=== PATIENT | male | born 2000 | race African-American/Black ===

== ENCOUNTER 2019-09-16 22:09 | Emergency (ER) | payer OTHER, SELFPAY ==
[2019-09-16 22:10] VITALS: BP 106/69; PULSE 74; RESP 18; TEMP 36.4; O2SAT 98; BMI 19.1
[2019-09-16 22:38] VITALS: BP 130/81; PULSE 77; RESP 15; O2SAT 99
[2019-09-16] MEDS: predniSONE 20 MG Tablet 60 MG PO (22:53)
--- NOTE | 2019-09-16 23:01 | RAD_ITS ---
STUDY: X-RAY - SOFT TISSUE NECK REASON FOR EXAM: Male, 18 years old. Treble swallowing after eating shrimp TECHNIQUE: 2 view(s) of the neck were obtained. COMPARISON: None. FINDINGS: Normal visualized nasopharynx, oropharynx, hypopharynx. Normal epiglottis. Normal visualized subglottic tracheal air column. Normal prevertebral soft tissue structures. Normal visualized osseous structures. The soft tissue structures are unremarkable. RAD/Neck for Soft Tissue IMPRESSION: Normal x-ray soft tissue neck. Electronically Signed: Fadi Vora MD at 23:10 EDT , Service support ,
--- NOTE | 2019-09-16 23:03 | ED.VIS.GEN ---
History of Present Illness Chief Complaint: Allergic Reaction Informant: Patient Onset: Today Context: Gradual Onset Timing: Intermittent Current Severity: Mild Maximum Severity: Moderate Narrative: Patient is a 18-year-old male with no past medical history presenting with swelling and foreign body sensation in his throat. Patient states he ate dinner today which consisted of a shrimp po-boy and then about 1/2-hour later he started to feel like there is a lump in his right throat. Patient states he had a very hard time swallowing it was also painful. He was still able to breathe and was handling his secretions. [facility] come to the emergency room. Patient did take Benadryl prior to arrival. He denies any history of allergies or history of anaphylaxis. He says he also ate shrimp for lunch and did not have any issues. Patient and currently states his symptoms are quite mild. He denies any wheezing, rash or swelling of his mouth or tongue. He denies any other complaints at this time. Past Medical History - Allergies and Home Meds Allergies/Adverse Reactions: Allergies No Known Allergies Allergy (Verified 09/16/19 22:10) Primary Care Physician: Carole Walker MD [STAFF PHYSICIAN] - Past Medical History: - - Seasonal allergies Surgical History: noncontributory Smoking Status: Never smoker Review of Systems All systems negative except as indicated ENT: Reports: - - Swelling sensation in throat Physical Exam Vital Signs/Narrative: Vital Signs Temp Pulse Resp BP Pulse Ox 09/16/19 22:38 77 15 130/81 H 99 09/16/19 22:10 97.6 F L 74 18 106/69 98 Inital Vital Signs reviewed: Yes General: Well nourished, Well developed, No Acute Distress Head: Normocephalic, Atraumatic Eyes: Perrl, EOMI ENT: Moist mucous membranes, No rhinorrhea, TM's clear, - - Normal oropharynx and tongue, no edema appreciated. Negative for: Nasal congestion Neck: Supple, Nontender, No lymphadenopathy, - - No stridor Cardiovascular: Regular rate, Regular rhythm, No murmurs Respiratory: No distress, CTA bilaterally, Chest nontender. Negative for: Wheezing Abdomen: Soft, Nontender, Nondistended, Normal bowel sounds Extremities: No edema Skin: Normal color, No rash Neurological: Alert, Oriented x3, Cranial nerves II-XII grossly intact, Normal Strength, Normal Sensation Psychological: Normal affect, Normal Mood Diagnostic/Tx/Re-eval Diagnostic Data Soft Tissue Neck X-Ray 09/16/19 23:01 IMPRESSION: Normal x-ray soft tissue neck. Electronically Signed: Fadi Vora MD at 23:10 EDT , Service support , - Medical Decision Making Patient is evaluated for sensation of throat swelling. It occurred about 1/2-hour after eating dinner. Patient did eat shrimp for dinner. He has no known history of any history of allergies. At one point patient stated it was very hard for him to swallow and also painful. He was able to take Benadryl prior to arrival. On my evaluation patient has no signs of anaphylaxis or edema of the neck. He has no stridor, soft tissue swelling, wheezing, urticaria or other symptoms. He states he still is a little sore in his throat but he otherwise feels back to normal. Patient is given 60 mg prednisone. Soft tissue x-ray of the neck shows no obvious soft tissue swelling or free air. Not sure patient had allergic reaction or more of a globus sensation after eating. Regardless patient will be placed on a 5-day burst of steroids and given an EpiPen. He is encouraged to follow-up with a primary care doctor. Patient does not have a PCP he will be referred to [facility] for further follow-up and allergy testing as needed. Patient is counseled on signs and symptoms requiring return to the emergency room. Patient verbalizes agreement and understand this plan. Patient discharged home in stable and improved condition. ED Disposition - Plan for ED Patient: Disposition: Home or Assisted Living Diagnosis: Sensation of swollen throat Instructions: ALLERGIC REACTION, Other (General) Prescriptions: Prednisone [Deltasone] 40 mg PO DAILY #8 tab Prescription Printed Epi Pen (for allergic rxn) 0.3 mg IM X1 PRN #2 syringe PRN Reason: Anaphylaxis Prescription Printed Referrals: Carole Walker MD [STAFF PHYSICIAN] - Additional Instructions: He may also take Benadryl as needed at home. Avoid eating any shrimp products in case that caused the reaction to night. Is not clear if he had allergic reaction but we will treat it just in case to be safe. Return to emergency room should he develop worsening symptoms. Make sure he follow-up with a primary care doctor.
[2019-09-17 00:11] VITALS: BP 114/71; PULSE 66; RESP 18; O2SAT 97
[2019-09-17 00:24] VITALS: BP 115/66; PULSE 79; RESP 15; O2SAT 98
== END 2019-09-17 00:25 | disposition home or self-care (01) ==
LOC: ED 09-17 00:03
PROVIDERS: Emergency Provider Emergency Medicine
DX: R09.89 Other specified symptoms and signs involving the circulatory and respiratory systems (principal)
CPT/HCPCS: 70360; 99284